=== PATIENT | female | born 1950 | race Two or more races ===

== ENCOUNTER 2021-06-30 16:50 | Emergency (ER) | payer MEDICARE, OTHER ==
[~2021-06-30] VITALS: Ht 157.5 cm; Wt 65.8 kg
--- NOTE | 2021-06-30 16:55 | NUR ---
BIB FAMILY C/O SHARP CHEST PAIN THAT RADIATED TO L SHOULDER X5 DAYS, PT THREW UP TODAY. PLACED COMFORTABLY IN BED. VITALS CHECKED
--- NOTE | 2021-06-30 17:15 | NUR ---
IV CANNULA G20 INSERTED ON RIGHT AC. BLOOD DRAWN AND SENT TO LAB
--- NOTE | 2021-06-30 17:15 | NUR ---
PA AT BEDSIDE
--- NOTE | 2021-06-30 17:16 | NUR ---
DR VILLALOBOS MADE AWARE, EKG DONE AT BEDSIDE.
[2021-06-30 17:42] LABS: BASOPHILS # (AUTO) 0.1 K/uL (0.0-0.2); BASOPHILS % (AUTO) 0.6 % (0.0-2.0); EOSINOPHILS % (AUTO) 1.2 % (0.0-6.0); HEMATOCRIT 42 % (33-45); HEMOGLOBIN 13.9 g/dL (11.5-14.8); LYMPHOCYTES # (AUTO) 2.6 K/uL (0.8-4.8); LYMPHOCYTES % (AUTO) 26.5 % (20.0-44.0); MEAN CORPUSCULAR HGB CONC 33 g/dl (31.0-36.0); MEAN CORPUSCULAR VOLUME 87 fL (82-100); MONOCYTES # (AUTO) 0.5 K/uL (0.1-1.30); MONOCYTES % (AUTO) 5.2 % (2.0-12.0); NEUTROPHILS # (AUTO) 6.5 K/uL (1.8-8.9); NEUTROPHILS % (AUTO) 66.5 % (43.0-81.0); PLATELET COUNT (AUTO) 306 K/uL (150-450); RED BLOOD CELL COUNT(AUTO) 4.81 MIL/uL (4.0-5.2); WHITE BLOOD COUNT (AUTO) 9.8 K/uL (4.3-11.0)
[2021-06-30 18:34] LABS: CALCIUM, SERUM 9.5 mg/dL (8.5-10.1); CARBON DIOXIDE 25 mmol/L (21-32); CHLORIDE 102 mmol/L (98-107); CREATININE 0.9 mg/dL (0.6-1.3); GLUCOSE 122 mg/dL (74-106); POTASSIUM 3.9 mmol/L (3.5-5.1); SODIUM SERUM 138 mmol/L (136-145); UREA NITROGEN, BLOOD 13 mg/dL (7-18)
--- NOTE | 2021-06-30 19:26 | NUR ---
REPEAT TROPONIN AND EKG DONE AT BEDSIDE.
--- NOTE | 2021-06-30 20:25 | NUR ---
IV CANNULA REMOVED
[2021-06-30 20:26] VITALS: BP 143/70
--- NOTE | 2021-06-30 20:26 | NUR ---
Patient discharged to home in stable condition. Written and verbal after care instructions given. Patient verbalizes understanding of instruction.
== END 2021-06-30 20:26 | disposition home or self-care (01) ==
LOC: ER 16:50
DX: R07.89 Other chest pain (principal); I10 Essential (primary) hypertension; Z86.73 Personal history of transient ischemic attack (TIA), and cerebral infarction without residual deficits; Z87.42 Personal history of other diseases of the female genital tract; Z88.5 Allergy status to narcotic agent
CPT/HCPCS: 36415; 71045-TC; 80048-TC; 83880; 84484-TC; 85025-TC

== ENCOUNTER 2022-06-17 13:56 | Emergency (ER) | payer MEDICARE, OTHER ==
[~2022-06-17] VITALS: Ht 154.9 cm; Wt 67.6 kg
[2022-06-17 14:29] VITALS: BP 155/75
--- NOTE | 2022-06-17 15:35 | NUR ---
CALLED TO ROOM IN, NO ANSWER
--- NOTE | 2022-06-17 15:50 | NUR ---
CALL, NO ANSWER
--- NOTE | 2022-06-17 16:00 | NUR ---
CALLED TO ROOM IN, NO ANSWER
--- NOTE | 2022-06-17 16:40 | NUR ---
CALLED TO ROOM IN,NO ANSWER
== END 2022-06-17 16:46 | disposition left against medical advice (07) ==
LOC: ER 14:09
DX: M25.561 Pain in right knee (principal)

== ENCOUNTER 2023-03-19 06:18 | Emergency (ER) | payer MEDICARE, OTHER ==
[~2023-03-19] VITALS: Ht 160 cm; Wt 71.7 kg
[2023-03-19 06:47] VITALS: TEMP 98.4
[2023-03-19] MEDS ORDERED: ALBUTEROL FS 2.5 MG/3 ML VIAL.NEB NEB STA (06:51)
[2023-03-19] MEDS ORDERED: IPRATROPIUM NEB FS 0.5 MG/2.5 ML AMPUL.NEB NEB STA (06:51)
[2023-03-19] MEDS ORDERED: ALBUTEROL FS 2.5 MG/3 ML VIAL.NEB ONE (07:02)
[2023-03-19] MEDS ORDERED: IPRATROPIUM NEB FS 0.5 MG/2.5 ML AMPUL.NEB ONE (07:02)
[2023-03-19 07:05] VITALS: O2SAT 98
[2023-03-19 07:20] VITALS: O2SAT 100
[2023-03-19 07:27] LABS: BASOPHILS % (AUTO) 0.3 % (0.0-2.0); EOSINOPHILS % (AUTO) 0.2 % (0.0-6.0); HEMATOCRIT 40 % (33-45); HEMOGLOBIN 13.4 g/dL (11.5-14.8); LYMPHOCYTES # (AUTO) 1.5 K/uL (0.8-4.8); LYMPHOCYTES % (AUTO) 17.1 % (20.0-44.0); MEAN CORPUSCULAR HEMOGLOBIN 30 PG (26.0-33.0); MEAN CORPUSCULAR HGB CONC 33 g/dl (31.0-36.0); MEAN CORPUSCULAR VOLUME 91 fL (82-100); MONOCYTES # (AUTO) 0.6 K/uL (0.1-1.30); MONOCYTES % (AUTO) 6.4 % (2.0-12.0); NEUTROPHILS # (AUTO) 6.8 K/uL (1.8-8.9); PLATELET COUNT (AUTO) 304 K/uL (150-450); RED BLOOD CELL COUNT(AUTO) 4.41 MIL/uL (4.0-5.2); RED CELL DISTRIBUTION WIDTH 13.5 % (11.5-15.0); WHITE BLOOD COUNT (AUTO) 8.9 K/uL (4.3-11.0)
[2023-03-19 07:47] LABS: CALCIUM, SERUM 8.9 mg/dL (8.5-10.1); CARBON DIOXIDE 27 mmol/L (21-32); CHLORIDE 101 mmol/L (98-107); CREATININE 0.6 mg/dL (0.6-1.3); GLUCOSE 113 mg/dL (74-106); POTASSIUM 4.1 mmol/L (3.5-5.1); SODIUM SERUM 136 mmol/L (136-145); UREA NITROGEN, BLOOD 14 mg/dL (7-18)
[2023-03-19] MEDS ORDERED: IV NS 0.9% 1,000 ML BAG IV ONE (08:00)
[2023-03-19 08:20] LABS: NT-PRO BNP 220 pg/mL (0-125)
[2023-03-19] MEDS ORDERED: IV NS 0.9% 250 ML IV ONE (08:36)
[2023-03-19] MEDS ORDERED: CT SWABBABLE VALVE TRANS SET 1 EA INFUS.SET MC ONE (08:36)
[2023-03-19] MEDS ORDERED: IOHEXOL-350 100 ML VIAL IV ONE (08:36)
[2023-03-19] MEDS ORDERED: PRED50TA PO (10:57)
[2023-03-19] MEDS ORDERED: ALBU2.5V13 NEB (10:57)
[2023-03-19] MEDS ORDERED: predniSONE 50 MG TABLET PO ONE (11:00)
[2023-03-19] MEDS ORDERED: predniSONE 20 MG TABLET ONE (11:03)
[2023-03-19 11:44] VITALS: BP 145/98; O2SAT 100
== END 2023-03-19 11:45 | disposition home or self-care (01) ==
LOC: ER 06:30
DX: R06.02 Shortness of breath (principal); R06.2 Wheezing; I10 Essential (primary) hypertension; Z88.5 Allergy status to narcotic agent; Z60.2 Problems related to living alone; Z20.822 Contact with and (suspected) exposure to COVID-19
CPT/HCPCS: 99285; 96360; 71275; 71045; 87426; 93005; 87804 ×2; 85025; 80048; 85378; 36415; 84484; 83880; 94640; J7512; J7030; J7050; Q9967

== ENCOUNTER 2023-09-11 07:50 | Inpatient (IN) | payer MEDICARE, OTHER ==
[~2023-09-11] VITALS: Ht 157.5 cm; Wt 73.5 kg
[~2023-09-11 07:50] MED LIST: ALBU2.5V13 NEB; PRED50TA PO
[2023-09-11] MEDS ORDERED: ONDANSETRON HCL/PF 4 MG/2 ML VIAL ONE (08:19)
[2023-09-11] MEDS ORDERED: MORPHINE SULFATE INJ 4 MG/ML DISP.SYRIN ONE (08:21)
[2023-09-11 08:30] LABS: BASOPHILS % (AUTO) 0.4 % (0.0-2.0); EOSINOPHILS # (AUTO) 0.3 K/uL (0.0-0.7); EOSINOPHILS % (AUTO) 3.4 % (0.0-6.0); HEMATOCRIT 39 % (33-45); LYMPHOCYTES # (AUTO) 1.9 K/uL (0.8-4.8); LYMPHOCYTES % (AUTO) 18.8 % (20.0-44.0); MEAN CORPUSCULAR HEMOGLOBIN 30 PG (26.0-33.0); MEAN CORPUSCULAR HGB CONC 34 g/dl (31.0-36.0); MEAN CORPUSCULAR VOLUME 90 fL (82-100); MONOCYTES # (AUTO) 0.6 K/uL (0.1-1.30); MONOCYTES % (AUTO) 6.2 % (2.0-12.0); NEUTROPHILS # (AUTO) 7.2 K/uL (1.8-8.9); NEUTROPHILS % (AUTO) 71.2 % (43.0-81.0); PLATELET COUNT (AUTO) 257 K/uL (150-450); RED BLOOD CELL COUNT(AUTO) 4.31 MIL/uL (4.0-5.2); RED CELL DISTRIBUTION WIDTH 14.6 % (11.5-15.0); WHITE BLOOD COUNT (AUTO) 10.1 K/uL (4.3-11.0)
[2023-09-11 08:38] LABS: CARBON DIOXIDE 23 mmol/L (21-32); CHLORIDE 103 mmol/L (98-107); CREATININE 0.5 mg/dL (0.6-1.3); GLUCOSE 119 mg/dL (74-106); POTASSIUM 4.1 mmol/L (3.5-5.1); SODIUM SERUM 137 mmol/L (136-145); UREA NITROGEN, BLOOD 11 mg/dL (7-18)
[2023-09-11 08:44] LABS: ALANINE AMINOTRANSFERASE 16 U/L (12-78); ALKALINE PHOSPHATASE 104 U/L (46-116); ASPARTATE AMINOTRANSFERASE 7 U/L (15-37); BILIRUBIN,DIRECT 0.1 mg/dL (0.0-0.2); BILIRUBIN,TOTAL 0.5 mg/dL (0.2-1.0); LIPASE 50 U/L (16-77); TOTAL PROTEIN, SERUM 6.9 g/dL (6.4-8.2)
[2023-09-11] MEDS: IV NS 0.9% 1,000 ML IV ONE (08:45)
[2023-09-11] MEDS: MORPHINE SULFATE INJ 2 MG/ML DISP.SYRIN IV ONE (08:47)
[2023-09-11] MEDS: ONDANSETRON HCL/PF - ER 4 MG/2 ML VIAL IV ONE (08:48)
[2023-09-11] MEDS ORDERED: ALBU18HF2 IH (08:58)
[2023-09-11] MEDS ORDERED: LISI20TA30 PO (08:58)
[2023-09-11] MEDS ORDERED: LORA2TAB95 PO (08:58)
[2023-09-11] MEDS ORDERED: LEVO50TA8 PO (08:58)
[2023-09-11] MEDS ORDERED: MONT10TA22 PO (08:58)
[2023-09-11] MEDS ORDERED: IBUP-1490 PO (08:58)
[2023-09-11 09:19] LABS: APPEARANCE,URINE CLEAR (CLEAR); BILIRUBIN,URINE NEGATIVE (NEGATIVE); BLOOD, URINE 3+ Ery/uL (NEGATIVE); COLOR,URINE YELLOW (YELLOW); KETONES,URINE NEGATIVE (NEGATIVE); LEUKOCYTE ESTERASE ,URINE 2+ (NEGATIVE); NITRITE, URINE NEGATIVE (NEGATIVE); PH,URINE 6.5 (5.0-8.0); PROTEIN,URINE 1+ mg/dl (NEGATIVE); UGLUCOSE NEGATIVE (NEGATIVE); UROBILINOGEN,URINE 0.2 EU/dL (0.2)
[2023-09-11 09:39] LABS: RBC,URINE 21-50 /HPF (0-2)
[2023-09-11 09:40] LABS: ADD URINE CULTURE YES; BACTERIA,URINE Moderate /HPF (None Seen); SQUAMOUS EPITHELIAL CELL,UR Few /HPF (None Seen)
[2023-09-11] MEDS ORDERED: KETOROLAC TROMETHAMINE INJ 30 MG/ML VIAL IV ONE (10:00)
[2023-09-11] MEDS: KETOROLAC TROMETHAMINE 15 MG/ML VIAL IV ONE (10:45)
[2023-09-11] MEDS: CEFTRIAXONE 1GM BAG (ER ONLY) 1 GM/50 ML PIGGYBACK IV ONE (10:45)
[2023-09-11] MEDS ORDERED: MONTELUKAST SODIUM (10MG) 10 MG TABLET PO SCH (11:30)
[2023-09-11] MEDS ORDERED: LEVOTHYROXINE SODIUM 50 MCG TABLET PO SCH (11:30)
[2023-09-11] MEDS ORDERED: ALBUTEROL FS 2.5 MG/0.5 ML VIAL.NEB NEB PRN (11:30)
[2023-09-11] MEDS ORDERED: ACETAMINOPHEN 325 MG TABLET PO PRN (11:30)
[2023-09-11] MEDS ORDERED: LISINOPRIL (20MG) 20 MG TABLET PO SCH (11:30)
[2023-09-11] MEDS ORDERED: IV NS 0.9% 1,000 ML IV PRN (11:30)
[2023-09-11] MEDS ORDERED: ENOXAPARIN SODIUM 40 MG/0.4 ML DISP.SYRIN SQ SCH (11:30)
[2023-09-11] MEDS ORDERED: LORAZEPAM 1 MG TABLET PO PRN (11:30)
[2023-09-11] MEDS ORDERED: ONDANSETRON HCL/PF 4 MG/2 ML VIAL IVP PRN (11:30)
[2023-09-11] MEDS ORDERED: CEPH500C2 PO (11:32)
[2023-09-11 11:42] VITALS: BP 128/79; TEMP 98.3; O2SAT 98
[2023-09-12] MEDS ORDERED: CEFTRIAXONE 1 G in IV D5W 50 ML IV SCH (09:00)
== END 2023-09-11 11:40 | disposition home or self-care (01) | DRG 690 ==
LOC: ER 07:50 → MEDSG1 10:49
PROVIDERS: ADMIT Nurse Practitioner Acute Care; ATTEND Nurse Practitioner Acute Care
DX: N39.0 Urinary tract infection, site not specified (principal); I10 Essential (primary) hypertension; E03.9 Hypothyroidism, unspecified; Z86.73 Personal history of transient ischemic attack (TIA), and cerebral infarction without residual deficits; J45.909 Unspecified asthma, uncomplicated; B96.89 Other specified bacterial agents as the cause of diseases classified elsewhere
CPT/HCPCS: 36415; 80048-TC; 80076-TC; 81001; 83605-TC; 83690-TC; 85025-TC; 87086-TC; A4223; G0378; J0696; J1885; J2270; J2405; J7030; J7060